=== PATIENT | male | born 1985 | race Caucasian/White ===

== ENCOUNTER 2020-08-04 11:48 | Emergency (ER) | payer OTHER ==
[2020-08-04] MEDS ORDERED: PREDNISONE 20MG20 MG PO (14:51)
[2020-08-04] MEDS ORDERED: CYCLOBENZAPRINE10 MG PO (14:51)
== END 2020-08-04 15:06 | disposition home or self-care (01) ==
LOC: FER 11:48
DX: S39.012A Strain of muscle, fascia and tendon of lower back, initial encounter (principal); X50.0XXA Overexertion from strenuous movement or load, initial encounter
CPT/HCPCS: 72100; 96372; J1100; J1885